=== PATIENT | male | born 1990 | race Caucasian/White ===

== ENCOUNTER 2017-01-26 10:40 | Emergency (ER) | payer OTHER ==
[~2017-01-26] VITALS: Ht 182.9 cm; Wt 72.5 kg
[2017-01-26 10:53] VITALS: BP 132/85; PULSE 84; RESP 16; TEMP 98.8; O2SAT 97
[2017-01-26] MEDS ORDERED: FAMOTIDINE 20 MG TAB PO STA (11:22)
[2017-01-26] MEDS ORDERED: SODIUM CHLOR 0.9% 1000 ML INJ 1,000 ML IV SCH (11:30)
[2017-01-26] MEDS ORDERED: ONDANSETRON HCL 4 MG/2 ML VIAL IV ONE (11:30)
[2017-01-26 11:39] LABS: AUTOMATED NEUTROPHIL # 7.5 TH/MM3 (1.8-7.7); BASOPHIL # 0.5 TH/MM3 (0-0.2); BASOPHIL % 4.5 % (0.0-2.0); EOSINOPHIL # 0.2 TH/MM3 (0-0.4); EOSINOPHIL % 1.5 % (0.0-4.0); HEMATOCRIT 44.1 % (39.0-51.0); LYMPH % 13.5 % (9.0-44.0); LYMPHOCYTE # 1.4 TH/MM3 (1.0-4.8); MEAN CELL VOLUME 87.6 FL (80.0-100.0); MEAN CORPUSCULAR HEMOGLOBIN 30.2 PG (27.0-34.0); MEAN CORPUSCULAR HGB CONC 34.4 % (32.0-36.0); MONO % 8.9 % (0.0-8.0); NEUT % 71.6 % (16.0-70.0); PLATELET COUNT 235 TH/MM3 (150-450); RED BLOOD COUNT 5.04 MIL/MM3 (4.50-5.90); RED CELL DISTRIBUTION WIDTH 12.1 % (11.6-17.2); WHITE BLOOD COUNT 10.5 TH/MM3 (4.0-11.0)
[2017-01-26 11:40] LABS: HEMO FLAGS DIFF FINAL
[2017-01-26 11:50] LABS: CHLORIDE 104 MEQ/L (98-107); POTASSIUM 3.9 MEQ/L (3.5-5.1); SODIUM (NA) 140 MEQ/L (136-145)
[2017-01-26 11:55] LABS: ANION GAP 8 MEQ/L (5-15); BICARBONATE 27.9 MEQ/L (21.0-32.0); BLOOD UREA NITROGEN 13 MG/DL (7-18)
[2017-01-26 11:58] LABS: ALT (GPT) 15 U/L (12-78); AST (GOT) 20 U/L (15-37); GLOMERULAR FILTRATION RATE 74 ML/MIN (>89)
[2017-01-26 11:59] LABS: TOTAL BILIRUBIN ADULT 0.6 MG/DL (0.2-1.0)
[2017-01-26 12:01] LABS: ALKALINE PHOSPHATASE 58 U/L (45-117)
--- NOTE | 2017-01-26 12:01 | RADHPO ---
EXAM DATE/TIME: 01/26/2017 11:39 [place] COMPARISON: No previous studies available for comparison. INDICATIONS : Right upper quadrant pain. Nausea and vomiting. MEDICAL HISTORY : Right upper quadrant pain. Nausea and vomiting. SURGICAL HISTORY : Right ACL repair. ENCOUNTER: Initial ACUITY: 1 month PAIN SCORE: 4/10 LOCATION: Right upper quadrant MEASUREMENTS: LIVER: 16.1 cm length COMMON DUCT: 2 mm RIGHT KIDNEY: 11.0 x 3.6 x 5.0 cm FINDINGS: LIVER: Normal echotexture without focal lesion or ductal dilatation. COMMON DUCT: No intraluminal mass or stone visualized. GALLBLADDER: Contains no stones, demonstrates no wall thickening or pericholecystic fluid. PANCREAS: The visualized portions are within normal limits. RIGHT KIDNEY: No evidence of hydronephrosis, stone, or mass. CONCLUSION: Negative for an acute process. There are no gallstones. Joe Arrieta MD FACR on January 26, 2017 at 11:59 Board Certified Radiologist. This report was verified electronically.
[2017-01-26] MEDS ORDERED: ZOFR4TAB3 SL (12:35)
[2017-01-26] MEDS ORDERED: RANI150C PO (12:35)
--- NOTE | 2017-01-26 12:36 | PD ---
HPI Chief Complaint: GI Complaint Time Seen by Provider: 11:13 Travel History International Travel<30 days: No Contact w/Intl Traveler<30days: No Traveled to known affect area: No History of Present Illness HPI Is a well 26-year-old young man who presents to the emergency department complaining of nausea vomiting and right sided abdominal pain. He states that for the past 8 months or so he's had intermittent nausea and vomiting about 3 times a week or so for the past 8 months. Over the past several days he started getting fevers and chills, and he had pain along the epigastrium and right costal margin. He states he's had a bad taste in his mouth with this. He has not had these symptoms before. Prior to 8 months ago he never had trouble with his abdomen. CTC drink alcohol fairly heavily, but has cut back in the past 8 months or so since she's been sick. He did drink alcohol couple times the past week or so. He smokes marijuana daily. Expressed denies any IV drug use. History Past Medical History Medical History: Denies Significant Hx Tetanus Vaccination: Unknown Social History Alcohol Use: No Tobacco Use: Yes (11/03 PPD) Allergies-Medications (Allergen,Severity, Reaction): Coded Allergies: No Known Allergies (Unverified , 01/26/17) Reported Meds & Prescriptions Reported Meds & Active Scripts Active No Active Prescriptions or Reported Medications Review of Systems Except as stated in HPI: all other systems reviewed are Neg Physical Exam Narrative GENERAL: Well-appearing 26 old man, no acute distress. SKIN: Warm and dry. HEAD: Atraumatic. Normocephalic. EYES: Pupils equal and round. No scleral icterus. No injection or drainage. ENT: No nasal bleeding or discharge. Mucous membranes pink and moist. NECK: Trachea midline. No JVD. CARDIOVASCULAR: Regular rate and rhythm. No murmur appreciated. RESPIRATORY: No accessory muscle use. Clear to auscultation. Breath sounds equal bilaterally. GASTROINTESTINAL: Admits flat and soft. Mild to moderate epigastric and right upper quadrant tenderness. Negative Stockton's. MUSCULOSKELETAL: No obvious deformities. No clubbing. No cyanosis. No edema. NEUROLOGICAL: Awake and alert. No obvious cranial nerve deficits. Motor grossly within normal limits. Normal speech. PSYCHIATRIC: Appropriate mood and affect; insight and judgment normal. Data Data Last Documented VS Vital Signs Date Time Temp Pulse Resp B/P Pulse Ox O2 Delivery O2 Flow Rate FiO2 01/26/17 10:53 98.8 84 16 132/85 97 Orders Complete Blood Count With Diff (01/26/17 11:22) Comprehensive Metabolic Panel (01/26/17 11:22) Lipase (01/26/17 11:22) Monoscreen (01/26/17 11:22) Iv Access Insert/Monitor (01/26/17 11:22) Us Abdomen Gallbladder (01/26/17 ) Sodium Chlor 0.9% 1000 Ml Inj (Ns 1000 M (01/26/17 11:30) Ondansetron Inj (Zofran Inj) (01/26/17 11:30) Famotidine (Pepcid) (01/26/17 11:22) Labs Laboratory Tests Test 01/26/17 11:20 White Blood Count 10.5 TH/MM3 Red Blood Count 5.04 MIL/MM3 Hemoglobin 15.2 GM/DL Hematocrit 44.1 % Mean Corpuscular Volume 87.6 FL Mean Corpuscular Hemoglobin 30.2 PG Mean Corpuscular Hemoglobin 34.4 % Concent Red Cell Distribution Width 12.1 % Platelet Count 235 TH/MM3 Mean Platelet Volume 8.9 FL Neutrophils (%) (Auto) 71.6 % Lymphocytes (%) (Auto) 13.5 % Monocytes (%) (Auto) 8.9 % Eosinophils (%) (Auto) 1.5 % Basophils (%) (Auto) 4.5 % Neutrophils # (Auto) 7.5 TH/MM3 Lymphocytes # (Auto) 1.4 TH/MM3 Monocytes # (Auto) 0.9 TH/MM3 Eosinophils # (Auto) 0.2 TH/MM3 Basophils # (Auto) 0.5 TH/MM3 CBC Comment DIFF FINAL Differential Comment Sodium Level 140 MEQ/L Potassium Level 3.9 MEQ/L Chloride Level 104 MEQ/L Carbon Dioxide Level 27.9 MEQ/L Anion Gap 8 MEQ/L Blood Urea Nitrogen 13 MG/DL Creatinine 1.20 MG/DL Estimat Glomerular Filtration 74 ML/MIN Rate Random Glucose 92 MG/DL Calcium Level 9.0 MG/DL Total Bilirubin 0.6 MG/DL Aspartate Amino Transf 20 U/L (AST/SGOT) Alanine Aminotransferase 15 U/L (ALT/SGPT) Alkaline Phosphatase 58 U/L Total Protein 7.6 GM/DL Albumin 3.7 GM/DL Lipase 100 U/L [facility] Medical Decision Making Medical Screen Exam Complete: Yes Emergency Medical Condition: Yes Interpretation(s) LABS: CBC is unremarkable. CMP is unremarkable Lipase is normal Gallbladder ultrasound: Negative. No gallstones. Differential Diagnosis Gastritis, cholecystitis, pancreatitis, other Narrative Course Medical decision making We'll very 26 old male with intermittent nausea and vomiting present with epigastric right upper quadrant abdominal pain. He was drinking alcohol last week. He has a bad taste in the back of his mouth. I think he likely has gastritis or reflux. Ultrasounds negative for gallbladder disease. Labs are otherwise unremarkable. We will recommend ranitidine for the next 4 weeks, Zofran, outpatient follow-up. He also complains of some gland swelling in his neck. I think this is more esophagitis and reflux. We'll check a Monospot Diagnosis Primary Impression: Gastritis Additional Instructions: Avoid alcohol and NSAID medication such as ibuprofen and Aleve. Take ranitidine as prescribed. Use Zofran as a for nausea or vomiting. Follow-up with a primary physician in the next 7-10 days every not feeling improved. Return to the emergency department for any worsening abdominal pain, or any other new or worsening symptoms. Med/Other Pt SpecificInfo: Prescription(s) given Scripts Ondansetron Odt (Zofran Odt)4 Mg Tab4 Mg SL Q8HR PRN (Nausea/Vomiting) #15 TAB May substitute non-ODT form. Prov:Grabiel Kong MD 01/26/17 Ranitidine 150 Mg Dow613 Mg PO BID #[id number] CAP Prov:Grabiel Kong MD 01/26/17 Disposition: 01 DISCHARGE HOME Condition: Stable Grabiel Kong MD Jan 26, 2017 12:36
[2017-01-26 12:50] VITALS: BP 149/66
== END 2017-01-26 12:54 | disposition home or self-care (01) ==
LOC: PHED 10:40
DX: K29.70 Gastritis, unspecified, without bleeding (principal)
CPT/HCPCS: 76705; 80053; 83690; 85025; 86308; 96374; 99284; J2405; J7030